=== PATIENT | female | born 1980 | race Caucasian/White ===

== ENCOUNTER 2017-05-23 09:39 | Emergency (ER) | payer OTHER ==
[2017-05-23 09:43] VITALS: TEMP 97; BMI 37.5
[2017-05-23 09:59] VITALS: RESP 18
[2017-05-23 11:07] LABS: SQUAMOUS EPITHIAL 1 /hpf (0-5); URINE AMORPHOUS SEDIMENT FEW /ul (<OCC); URINE BACTERIA MOD (<OCC); URINE BILIRUBIN NEGATIVE (NEGATIVE); URINE BLOOD MODERATE (NEGATIVE); URINE CLARITY SLIGHTY-CLOUDY (Clear); URINE COLOR YELLOW (YELLOW); URINE GLUCOSE (UA) NEG (Normal); URINE LEUKOCYTE ESTERASE NEG Leu/uL (Negative); URINE PROTEIN NEGATIVE (NEGATIVE); URINE UROBILINOGEN 0.2-1.0 mg/dL (0.2-1.0)
--- NOTE | 2017-05-23 11:14 | ED PDOC ---
HPI: General Adult Time Seen by Provider: 05/23/17 10:23 Chief Complaint (Nursing): Abdominal Pain History Per: Patient Additional Complaint(s): Pt. states for the past 2 years she's had LLQ abdominal pain (not RLQ contrary to triage note) and 3 days ago symptoms became worse. States she's also developed non-bloody watery brown diarrhea (2 episodes per day). Pt. believes LLQ abdominal pain has been present since her last . Pt. also reports urinary frequency with urgency. Denies N/V, melena, hematochezia, BRBPR, dysuria , hematuria, back pain, flank pain, fever, sick contacts, recent travel. Past Medical History Vital Signs: Last Vital Signs Temp 97 F L 05/23/17 14:57 Pulse 79 05/23/17 14:57 Resp 18 05/23/17 14:57 BP 125/76 05/23/17 14:57 Pulse Ox 99 05/23/17 14:57 - Medical History PMH: Asthma, Gastritis - Family History Family History: States: Unknown Family Hx - Home Medications Home Medications: Ambulatory Orders Medication Instructions Recorded Ciprofloxacin [Cipro] 1 tab PO BID #14 tab 05/23/17 Phenazopyridine [Phenazopyridine 1 tab PO BID #6 tab 05/23/17 HCl] - Allergies Allergies/Adverse Reactions: Allergies Allergy/AdvReac Type Severity Reaction Status Date / Time No Known Allergies Allergy Verified 05/23/17 09:53 Review of Systems ROS Statement: Except As Marked, All Systems Reviewed And Found Negative Gastrointestinal: Positive for: Abdominal Pain, Diarrhea Physical Exam - Physical Exam Appears: Positive for: Well, Non-toxic, No Acute Distress Skin: Positive for: Normal Color, Warm. Negative for: Rash Eye Exam: Positive for: Normal appearance. Negative for: Scleral icterus ENT: Positive for: Other (mucous membranes moist) Neck: Positive for: Normal, Painless ROM Cardiovascular/Chest: Positive for: Regular Rate, Rhythm. Negative for: Tachycardia Respiratory: Positive for: Normal Breath Sounds. Negative for: Respiratory Distress Gastrointestinal/Abdominal: Positive for: Normal Exam, Bowel Sounds, Soft, Tenderness (LLQ tenderness). Negative for: Distended, Guarding Back: Positive for: Normal Inspection. Negative for: L CVA Tenderness, R CVA Tenderness Extremity: Positive for: Normal ROM Neurologic/Psych: Positive for: Alert, Oriented. Negative for: Aphasia, Facial Droop - Laboratory Results Result Diagrams: 05/23/17 11:00 05/23/17 11:00 Urine POC: Negative - ECG O2 Sat by Pulse Oximetry: 100 - Progress ED Course And Treament: Labs, CT abd/pelvis w/ IV contrast, bentyl 20mg PO ordered. 1245 CT abd/pelvis w/ IV contrast No acute abdominal pelvic pathology. Incidental cholelithiasis without CT evidence of acute cholecystitis. Abd US ordered. 1351 Abd US: Cholelithiasis without sonographic evidence of acute cholecystitis. Pt. informed of results and instructed to f/u with PMD for further evaluation. States she is feeling better. Pain has improved. Disposition - Clinical Impression Clinical Impression: UTI (urinary tract infection) - Patient ED Disposition Is Patient to be Admitted: No - Disposition Disposition: Routine/Home Disposition Time: 14:00 Condition: IMPROVED Prescriptions: Ciprofloxacin [Cipro] 1 tab PO BID #14 tab Phenazopyridine [Phenazopyridine HCl] 1 tab PO BID #6 tab Instructions: Urinary Tract Infection, Adult (DC) Forms: [employer] (Ukrainian)
[2017-05-23 11:32] LABS: BASO % 0.5 % (0.0-2.0); EOS % 0.5 % (0.0-4.0); HEMOGLOBIN 13.3 g/dL (12.0-16.0); LYMPH # 1.7 K/uL (1.0-4.3); MEAN CELL VOLUME 89.3 fl (81.0-99.0); MEAN CORPUSCULAR HEMOGLOBIN 29.9 pg (27.0-31.0); MEAN CORPUSCULAR HGB CONC 33.5 g/dL (33.0-37.0); MEAN PLATELET VOLUME 8.5 fl (7.2-11.7); MONO # 0.5 K/uL (0.0-0.8); NEUT # 6.2 K/uL (1.8-7.0); NRBC % 0.1 % (0.0-0.0); RBC 4.44 Mil/uL (3.80-5.20); RED CELL DISTRIBUTION WIDTH 13.8 % (11.5-14.5); WHITE BLOOD COUNT 8.5 K/uL (4.8-10.8)
[2017-05-23 11:43] LABS: ALB/GLOB RATIO 1.1 (1.0-2.1); ALBUMIN 3.9 g/dL (3.5-5.0); ALT/SGPT 25 U/L (9-52); AST/SGOT 13 U/L (14-36); BLOOD UREA NITROGEN 17 mg/dl (7-17); CALCIUM 9.4 mg/dL (8.4-10.2); GFR AFRICAN-AMERICAN > 60; GFR NON-AFRICAN AMERICAN > 60
[2017-05-23] MEDS ORDERED: Sodium Chloride 0.9% 100 ML ONE (12:04)
[2017-05-23] MEDS ORDERED: Iohexol 300 100 ML IJ ONE (12:04)
--- NOTE | 2017-05-23 12:47 | CT ---
PROCEDURE: CT Abdomen and Pelvis with contrast HISTORY: LLQ abdominal pain; diarrhea COMPARISON: None. TECHNIQUE: Contrast dose: 95 mL Omnipaque 300 Radiation dose: Total exam DLP = 1114.1 mGy-cm. This CT exam was performed using one or more of the following dose reduction techniques: Automated exposure control, adjustment of the mA and/or kV according to patient size, and/or use of iterative reconstruction technique. FINDINGS: LOWER THORAX: Unremarkable. LIVER: Unremarkable. No gross lesion or ductal dilatation. GALLBLADDER AND BILE DUCTS: Cholelithiasis without gallbladder wall thickening/ edema or pericholecystic fluid. PANCREAS: Unremarkable. No gross lesion or ductal dilatation. SPLEEN: Unremarkable. ADRENALS: Unremarkable. No mass. KIDNEYS AND URETERS: Unremarkable. No hydronephrosis. No solid mass. VASCULATURE: Unremarkable. No aortic aneurysm. BOWEL: Unremarkable. No obstruction. No gross mural thickening. APPENDIX: Normal appendix. PERITONEUM: Unremarkable. No free fluid. No free air. LYMPH NODES: Unremarkable. No enlarged lymph nodes. BLADDER: Unremarkable. REPRODUCTIVE: Unremarkable. BONES: No acute fracture. OTHER FINDINGS: None. IMPRESSION: No acute abdominal pelvic pathology. Incidental cholelithiasis without CT evidence of acute cholecystitis.
--- NOTE | 2017-05-23 13:53 | US ---
HISTORY: cholelithiasis COMPARISON: CT scan of the abdomen pelvis performed earlier the same day. TECHNIQUE: Sonographic evaluation of the right upper quadrant of the abdomen. FINDINGS: LIVER: Enlarged, measuring 18.8 cm in length. Normal echogenicity of the liver parenchyma. No mass. No intrahepatic bile duct dilatation. GALLBLADDER: Cholelithiasis without gallbladder wall thickening/edema or pericholecystic fluid. Sonographic Burk sign was not elicited. COMMON BILE DUCT: Measures 4 mm. No stones. No dilatation. PANCREAS: Unremarkable as visualized. No mass. No ductal dilatation. RIGHT KIDNEY: Measures 11.8 x 5.2 x 6.6 cm in length. Normal echogenicity. No calculus, mass, or hydronephrosis. AORTA: No aneurysmal dilatation. IVC: Unremarkable. OTHER FINDINGS: None . IMPRESSION: Cholelithiasis without sonographic evidence of acute cholecystitis.
[2017-05-23 14:57] VITALS: BP 125/76; PULSE 79
[2017-05-23 15:28] VITALS: O2SAT 100
== END 2017-05-23 15:05 | disposition home or self-care (01) ==
LOC: H.ER 09:39
DX: N39.0 Urinary tract infection, site not specified (principal); K80.20 Calculus of gallbladder without cholecystitis without obstruction; J45.909 Unspecified asthma, uncomplicated
CPT/HCPCS: 74177; 76705; 80053; 81003; 81025; 85025; 87040; 87086; 87181; 99284; Q9967

== ENCOUNTER 2018-03-23 10:06 | Emergency (ER) | payer OTHER ==
[2018-03-23 10:09] VITALS: BMI 36.9
[2018-03-23] MEDS ORDERED: Sodium Chloride 0.9% 1,000 ML IV STA (10:47)
--- NOTE | 2018-03-23 10:49 | ED PDOC ---
HPI: Abdomen Time Seen by Provider: 03/23/18 10:33 Chief Complaint (Nursing): Abdominal Pain Chief Complaint (Provider): abdominal pain History Per: Patient History/Exam Limitations: no limitations Onset/Duration Of Symptoms: Days (months), Waxing/Waning Current Symptoms Are (Timing): Still Present Location Of Pain/Discomfort: LLQ Additional Complaint(s): 37 y/o female presents for evaluation of intermittent abdominal pain x 3 months. Patient states pain mostly left lower abdomen; seems to be worse during her menstrual period. Denies fever, nausea/vomiting, chest pain, shortness of breath, palpitations, changes in bowel movements, urinary symptoms. Abnormal Vaginal Bleeding: No Past Medical History Reviewed: Historical Data, Nursing Documentation, Vital Signs Vital Signs: Last Vital Signs Temp 98.5 F 03/23/18 10:11 Pulse 101 H 03/23/18 10:11 Resp 20 03/23/18 10:11 BP 124/80 03/23/18 10:11 Pulse Ox 99 03/23/18 10:11 - Medical History PMH: Asthma, Gastritis - Family History Family History: States: Unknown Family Hx - Home Medications Home Medications: Ambulatory Orders Medication Instructions Recorded Ciprofloxacin [Cipro] 1 tab PO BID #14 tab 05/23/17 Phenazopyridine [Phenazopyridine 1 tab PO BID #6 tab 05/23/17 HCl] Naproxen [Naprosyn] 500 mg PO Q12 PRN #20 tablet 03/23/18 - Allergies Allergies/Adverse Reactions: Allergies Allergy/AdvReac Type Severity Reaction Status Date / Time No Known Allergies Allergy Verified 05/23/17 09:53 Review of Systems ROS Statement: Except As Marked, All Systems Reviewed And Found Negative Gastrointestinal: Positive for: Abdominal Pain Physical Exam - Reviewed Nursing Documentation Reviewed: Yes Vital Signs Reviewed: Yes - Physical Exam Appears: Positive for: Well, Non-toxic, No Acute Distress Head Exam: Positive for: ATRAUMATIC, NORMAL INSPECTION, NORMOCEPHALIC Skin: Positive for: Normal Color Eye Exam: Positive for: Normal appearance ENT: Positive for: Normal ENT Inspection Cardiovascular/Chest: Positive for: Regular Rate, Rhythm Respiratory: Positive for: Normal Breath Sounds Gastrointestinal/Abdominal: Positive for: Bowel Sounds, Soft, Tenderness (LLQ) Back: Positive for: Normal Inspection Extremity: Positive for: Normal ROM Neurologic/Psych: Positive for: Alert, Oriented (x3) - Laboratory Results Result Diagrams: 03/23/18 10:50 03/23/18 10:50 - ECG O2 Sat by Pulse Oximetry: 99 - Progress ED Course And Treament: -upreg -udip -cbc -cmp -TV u/s -IV toradol -IV NS bolus Date of service: 03/23/2018 PROCEDURE: HISTORY: left lower pain COMPARISON: TECHNIQUE: FINDINGS: The uterus measures 11.8 x 6.1 centimeters. The endometrium measures 12 millim eters. There is a hypoechoic mass measuring 4.7 x 2.9 by 4.6 centimeters. The right ovary measures 3.3 x 3.8 x 2.9 centimeters. Left arm measures 4.4 x 4.0 x 2.9 centimeters. There is no free fluid the pelvis. IMPRESSION: Nonspecific hypoechoic mass to the left and anterior to the uterus measuring 4.7 x 2.9 x 4.6 centimeters. Patient educated on findings, discharged with instructions to follow up with [facility] within 2-3 days Rx Naproxen given Patient was advised to return to ED for worsening/concerning symptoms Disposition - Clinical Impression Clinical Impression: Pelvic pain, Adnexal mass - Patient ED Disposition Is Patient to be Admitted: No Counseled Patient/Family Regarding: Studies Performed, Diagnosis, Need For Followup, Rx Given - Disposition Disposition: Routine/Home Disposition Time: 13:16 Condition: IMPROVED Prescriptions: Naproxen [Naprosyn] 500 mg PO Q12 PRN #20 tablet PRN Reason: Pain, Moderate (4-7) Instructions: Acute Pelvic Pain Forms: [employer] (Serbian)
[2018-03-23 11:24] LABS: BASO % 0.5 % (0.0-2.0); EOS % 0.4 % (0.0-4.0); HEMOGLOBIN 12.1 g/dL (12.0-16.0); LYMPH # 1.3 K/uL (1.0-4.3); LYMPH % 17.3 % (20.0-40.0); MEAN CELL VOLUME 89.4 fl (81.0-99.0); MEAN CORPUSCULAR HEMOGLOBIN 28.7 pg (27.0-31.0); MEAN CORPUSCULAR HGB CONC 32.1 g/dL (33.0-37.0); MEAN PLATELET VOLUME 8.5 fl (7.2-11.7); MONO # 0.4 K/uL (0.0-0.8); MONO % 5.5 % (0.0-10.0); NEUT % 76.3 % (50.0-75.0); NRBC % 0.1 % (0.0-0.0); RBC 4.22 Mil/uL (3.80-5.20); RED CELL DISTRIBUTION WIDTH 14.1 % (11.5-14.5); WHITE BLOOD COUNT 7.8 K/uL (4.8-10.8)
[2018-03-23 11:28] LABS: ALB/GLOB RATIO 1.2 (1.0-2.1); ALT/SGPT 12 U/L (9-52); AST/SGOT 16 U/L (14-36); BLOOD UREA NITROGEN 17 mg/dl (7-17); CALCIUM 9.1 mg/dL (8.4-10.2); GFR NON-AFRICAN AMERICAN > 60
[2018-03-23 11:32] LABS: SQUAMOUS EPITHIAL 1 /hpf (0-5); URINE BACTERIA RARE (<OCC); URINE BILIRUBIN NEGATIVE (NEGATIVE); URINE BLOOD MODERATE (NEGATIVE); URINE CLARITY SLIGHTY-CLOUDY (Clear); URINE COLOR YELLOW (YELLOW); URINE GLUCOSE (UA) NEG (NEGATIVE); URINE LEUKOCYTE ESTERASE NEG Leu/uL (Negative); URINE PROTEIN NEGATIVE (NEGATIVE); URINE UROBILINOGEN 0.2-1.0 mg/dL (0.2-1.0)
--- NOTE | 2018-03-23 12:53 | US ---
Date of service: 03/23/2018 PROCEDURE: HISTORY: left lower pain COMPARISON: TECHNIQUE: FINDINGS: The uterus measures 11.8 x 6.1 centimeters. The endometrium measures 12 millimeters. There is a hypoechoic mass measuring 4.7 x 2.9 by 4.6 centimeters. The right ovary measures 3.3 x 3.8 x 2.9 centimeters. Left arm measures 4.4 x 4.0 x 2.9 centimeters. There is no free fluid the pelvis. IMPRESSION: Nonspecific hypoechoic mass to the left and anterior to the uterus measuring 4.7 x 2.9 x 4.6 centimeters.
[2018-03-23 13:51] VITALS: BP 132/84; PULSE 87; RESP 16; TEMP 98.7; O2SAT 100
== END 2018-03-23 13:40 | disposition home or self-care (01) ==
LOC: H.ER 10:06
DX: R10.2 Pelvic and perineal pain (principal); R19.09 Other intra-abdominal and pelvic swelling, mass and lump
CPT/HCPCS: 76830; 80053; 81003; 81025; 85025; 87086; 87181; 96374; 99284; J1885; J7030